=== PATIENT | male | born 1985 | race African-American/Black ===

== ENCOUNTER 2020-11-04 02:10 | Emergency (ER) | payer SELFPAY ==
[~2020-11-04] VITALS: Ht 182.9 cm; Wt 72.0 kg
[~2020-11-04 02:10] MED LIST: VIC
[2020-11-04] MEDS ORDERED: KETOROLAC 30MG/ML VIAL IV STA (03:01)
[2020-11-04] MEDS ORDERED: ONDANSETRON HCL 4MG/2ML INJ IV STA (03:01)
[2020-11-04] MEDS ORDERED: SODIUM CHLORIDE 0.9% 1,000 ML IV ONE ×2 (03:15→05:45)
[2020-11-04 03:17] LABS: BASOPHILS % 0.2 % (0.0-2.0); EOSINOPHILS % 0.4 % (0.0-5.0); HEMATOCRIT. 43.9 % (42.0-52.0); HEMOGLOBIN. 15.3 g/dL (14.0-18.0); LYMPHOCYTES % 13.7 % (20.0-50.0); MEAN CORPUSCULAR HEMOGLOBIN 30.8 pg (28.0-32.0); MEAN CORPUSCULAR VOLUME 88.2 fL (80.0-94.0); MEAN PLATELET VOLUME 9.1 fl (7.4-10.4); MONOCYTES % 6.6 % (2.0-8.0); NEUTROPHILS % 79.1 % (40.0-76.0); PLATELET 171 x1000/uL (130-400); RED BLOOD CELL COUNT 4.98 mill/uL (4.7-6.1); RED CELL DISTRIBUTION WIDTH 12.8 % (11.6-14.6)
[2020-11-04 03:18] LABS: CHLORIDE 108 mEq/L (98-107)
[2020-11-04] MEDS ORDERED: MORPHINE SULFATE 4 MG/ML CPJ (NOT FOR IM USE) IV ONE ×2 (05:15→07:15)
[2020-11-04] MEDS ORDERED: TAMSULOSIN HCL 0.4MG SR CAPSULE PO SCH (06:00)
[2020-11-04] MEDS ORDERED: IBUP-2029 MT (06:22)
[2020-11-04] MEDS ORDERED: TAMS-11 MT (06:22)
[2020-11-04 06:40] LABS: CLARITY URINE CLEAR (CLEAR); COLOR URINE YELLOW (YELLOW); KETONES URINE NEGATIVE (NEGATIVE); LEUKOCYTE ESTERASE URINE TRACE (NEGATIVE); NITRITE URINE NEGATIVE (NEGATIVE); OCCULT BLOOD URINE 3+ (NEGATIVE); PH URINE 8.5 (4.5-8.0); PROTEIN URINE 1+ (NEGATIVE); SPECIFIC GRAVITY URINE 1.021 (1.005-1.030)
[2020-11-04] MEDS ORDERED: IBUPROFEN 600MG TABLET PO ONE (07:15)
[2020-11-04 09:21] VITALS: BP 125/87
== END 2020-11-04 09:21 | disposition home or self-care (01) ==
LOC: ER 02:10
DX: N13.2 Hydronephrosis with renal and ureteral calculous obstruction (principal); F12.10 Cannabis abuse, uncomplicated; F17.210 Nicotine dependence, cigarettes, uncomplicated
CPT/HCPCS: 36415; 71045; 74176; 80053; 81003; 83690; 85025; 96361; 96374; 96375; 96376; 99285; J1885; J2270; J2405; J7030